=== PATIENT | female | born 1950 | race African-American/Black ===

== ENCOUNTER 2021-02-16 20:01 | Inpatient (IN) | payer MEDICARE, SELFPAY ==
--- NOTE | ~2021-02-16 | XR_ITS ---
EXAMINATION: XR chest 1V portable 02/16/2021 21:20 INDICATION: Weakness and dyspnea PROCEDURE: AP view of the chest COMPARISON: No prior studies for comparison. FINDINGS: The lungs are clear. The cardiomediastinal silhouette is within normal limits. There are no pleural effusions. There is no pneumothorax suspected. Prominent left nipple shadow. IMPRESSION: 1: NO ACUTE CARDIOPULMONARY DISEASE. Reviewed, dictated and finalized at location A.
--- NOTE | ~2021-02-16 | CT_ITS ---
EXAMINATION: CT abdomen pelvis wo con DATE: 02/16/2021 21:16 INDICATION: Diffuse abdominal pain and vomiting TECHNIQUE: Computed tomography (CT) of the abdomen and pelvis was performed without intravenous contr ast. The dose-length product was 272.36 mGy-cm. Automated exposure control and iterative reconstructi on technique were employed. COMPARISON: None. FINDINGS: Calcified granuloma right lower lobe. There is bibasilar atelectasis. Heart size is normal. Small pericardial effusion. No significant pleural effusion. There is an accessory splenule medial t o the spleen. There are gallstones. Gallbladder wall is indistinct with pericholecystic infiltration, suspicious for acute cholecystitis. No significant biliary dilatation. There is atherosclerosis of t he aorta without aneurysm. The liver, spleen, pancreas, adrenal glands and kidneys are unremarkable. IMPRESSION: 1. Cholelithiasis with possible gallbladder wall thickening and pericholecystic inflammation, suspici ous for acute cholecystitis. Correlate clinically. 2: Small pericardial effusion. Reviewed, dictated and finalized at location A. IMPRESSION: 1. Cholelithiasis with possible gallbladder wall thickening and pericholecystic inflammation, suspicious for acute cholecystitis. Correlate clinically. 2: Small pericardial effusion.
[2021-02-16 20:04] VITALS: BP 107/71; PULSE 100; RESP 16; TEMP 36.2; O2SAT 97
[2021-02-16 20:26] LABS: Hemoglobin 14.1 g/dL (12.0-15.0); Mean Corpuscular HGB Conc 35.3 g/dl (32-36); Mean Corpuscular Hemoglobin 28.8 pg (26-34); Mean Corpuscular Volume 81.8 fl (80-100); Mean Platelet Volume 10.8 fl (7.4-10.4); Platelet Count Result 386 k/mm3 (150-375); Red Blood Count 4.89 M/mm3 (4.2-5.4); Red Cell Distribution Width 12.3 % (11.5-14.5); White Blood Count 27.2 K/mm3 (4.5-10.0)
[2021-02-16 20:43] LABS: Band Neutrophils Percent 3 % (0-6); Eosinophils Absolute Manual 0.54 K/mm3 (0.02-0.5); Eosinophils Percent Manual 2 % (0-4); Lymphocytes Absolute Manual 2.72 K/mm3 (1.1-4.5); Monocytes Percent Manual 7 % (3-9); Neutrophils Absolute Manual 22.03 K/mm3 (1.7-7.2); Neutrophils Percent Manual 78 % (46-73); Platelet Estimate Increased (Adequate); Total Cells Counted 100
[2021-02-16 20:44] LABS: Alanine Aminotransferase 13 U/L (4-35); Alkaline Phosphatase 54 U/L (38-126); Aspartate Amino Transferase 21 U/L (14-36); Bilirubin,Total 0.9 mg/dL (0.2-1.3); Calcium 9.6 mg/dL (8.4-10.2); Glucose 225 mg/dL (65-105); Lipase 30 U/L (23-300)
--- NOTE | 2021-02-16 21:03 | ED.ABDPAIN ---
HPI - Abdominal Pain General Chief Complaint: Abdominal Pain Stated Complaint: abd pain vomiting Time Seen by Provider: 02/16/21 20:56 Source: patient and RN notes reviewed Mode of arrival: ambulatory Limitations: no limitations History of Present Illness HPI narrative: This is a 70 year old female who presents for evaluation of nausea, vomiting and abdominal pain. Patient states she developed nausea and vomiting on Monday. She developed constant lower abdominal pain after her vomiting. Her last bowel movement was Monday morning and she states it was normal. She denies fever or chills. She states she feels weak. She denies chest pain, cough or shortness of breath Related Data Home Medications Medication Instructions Recorded Confirmed amlodipine-benazepril 10 - 40 cap PO DAILY 02/17/21 02/17/21 gabapentin 300 mg PO Q12H 02/17/21 02/17/21 glimepiride 4 mg PO TID 02/17/21 02/17/21 Allergies Allergy/AdvReac Type Severity Reaction Status Date / Time iodine Allergy Anaphylaxis Verified 02/16/21 20:09 Review of Systems Review of Systems: All systems reviewed & are unremarkable except as noted in HPI and below Constitutional: Constitutional: Denies chills, Reports fatigue, Denies fever(s) and Reports weakness Cardiovascular: Cardiovascular: Denies chest pain Respiratory: Respiratory: Denies cough and Denies dyspnea Gastrointestinal: Gastrointestinal: Reports abdominal pain, Denies diarrhea, Reports nausea and Reports vomiting Musculoskeletal: Musculoskeletal: Reports back pain (chronic) [facility] Past Medical History Medical History (Updated 02/17/21 @ 00:36 by Kaylah Schaffer MD) Hypertension Surgical History Surgical History (Updated 02/16/21 @ 21:04 by Kaylah Schaffer MD) H/O: hysterectomy Family History Family History (Updated 02/17/21 @ 00:14 by Sophie North RN) Mother Lung cancer Other Breast cancer Father Pacemaker Diabetes mellitus Other Hypertension Social History Social History (Updated 02/16/21 @ 21:04 by Kaylah Schaffer MD) Years smoked: 40 Smoking status: Current every day smoker Tobacco type: cigarettes Alcohol intake: former Alcohol use details: occasional Substance use: current Substance use type: marijuana Gender identity (if verbalized by the patient): Female Spiritual care concerns: No Exam Const: General: no acute distress and alert Orientation/consciousness: patient oriented x3 Eyes: EOM: EOMs intact bilaterally Resp: Effort & Inspection: normal respiratory effort and no retractions Auscultation: clear to auscultation bilaterally Cardio: Rate: regular rate Rhythm: regular rhythm Heart sounds: Murmur heart sound present systolic GI: GI Palp: Yes Soft to palpation, Yes Tenderness to palpation present (GI), No Guarding due to palpation present (GI) and No Rigid due to palpation Auscultation: Hypoactive bowel sounds present Skin: General skin exam: normal color Neuro: General: patient oriented x3, moves all extremities and CN's II-XI intact bilaterally Psych: Mental Status: mental status grossly normal Affect: normal affect Course Reevaluation(s) Reevaluation #1: I discussed with patient that she will be admitted to hospital for evaluation of cholecystitis and hypokalemia. She denies any heart problems or chest pain. She reports she feels better. Date: 02/16/21 Time: 22:00 Consultations Consultation #1: I discussed case with Dr. Huber . He agrees to consult for evaluation of cholecystitis. PAtient will be admitted to hospitalist service. Date: 02/16/21 Time: 22:01 Consultation #2: I discussed case with DR. Smart and she accepts patient to hospitalist service. Date: 02/16/21 Time: 22:16 Vital Signs Vital signs: Vital Signs Temperature 97.1 F L 02/16/21 20:04 Pulse Rate 100 02/16/21 20:04 Respiratory Rate 16 02/16/21 20:04 Blood Pressure 107/71 02/16/21 20:04 Pulse Oximetry 97
[2021-02-16 21:27] LABS: Anion Gap 13 mmol/L (8-16); Blood Urea Nitrogen 23 mg/dL (7-17); Carbon Dioxide 25 mmol/L (22-30); Chloride 101 mmol/L (98-107); Potassium 2.8 mmol/L (3.4-5.0); Sodium 139 mmol/L (137-145)
[2021-02-16 21:28] LABS: Albumin Level 4.4 g/dL (3.5-5.1); Estimated CRCL calculation 26 ml/min; Estimated Glomerular Filt Rate 34
--- NOTE | 2021-02-16 21:35 | PC.NURSE ---
Pt unable to urinate at this time, refusing straight catheter. Urine cup at bedside.
[2021-02-16] MEDS: ONDANSETRON INJ 4 MG/2 ML VIAL IV PUSH (21:39)
[2021-02-16] MEDS: LACTATED RINGERS 1,000 ML 999 ML IV CONT ×2 (21:39→22:06)
[2021-02-16 21:41] VITALS: BP 107/77; O2SAT 100
[2021-02-16 21:49] LABS: INR 1.1; Lactic Acid Reflex 1.1 mmol/L (0.7-2.1); Magnesium 1.7 mg/dL (1.6-2.3); Prothrombin Time 15.1 Seconds (11.1-14.7)
[2021-02-16 21:50] LABS: Partial Thromboplastin Time 31.7 SECONDS (22.3-36.8)
[2021-02-16 22:31] VITALS: BP 134/83
[2021-02-16 22:42] LABS: Add Urine Microscopic? YES; Amorphous Sediment Urine Few; Appearance Urine Cloudy (Clear); Bacteria Urine Trace /hpf; Bilirubin Urine Negative (Negative); Blood Urine 1+ (Negative); Color Urine Yellow (Yellow); Glucose Urine UA 2+ mg/dL (Negative); Ketones Urine Negative (Negative); Leukocyte Esterase Ur Negative LEU/UL (Negative); Mucus Urine Rare /lpf; Nitrate Urine Negative (Negative); Protein Urine 3+ mg/dL (Negative); Specific Grav Ur 1.018 (1.001-1.035); Squamous Epithelial Cell Urine Many /hpf (Few); Urobilinogen Urine Negative mg/dL (<2.0); WBC Urine 0-3 /hpf
[2021-02-16 23:00] VITALS: BP 130/73; PULSE 85; RESP 16; O2SAT 95
[2021-02-16 23:16] VITALS: BP 141/82; PULSE 85; RESP 17; O2SAT 95
--- NOTE | 2021-02-16 23:38 | PC.NURSE ---
KCl burning pt arm. IV site intact, no signs of infiltration. Bolus of LR okayed by physician.
[2021-02-16] MEDS: LACTATED RINGERS 1,000 ML 125 ML IV CONT (23:46)
[2021-02-16 23:50] VITALS: BP 115/59; PULSE 98; RESP 16; TEMP 36.4; O2SAT 95; BMI 24.4
[2021-02-17] VITALS (10 sets, daily range): BP systolic 122–138; BP diastolic 67–84; PULSE 76–90; RESP 16–18; TEMP 36.1–36.7; O2SAT 96–100
--- NOTE | 2021-02-17 | ECHO_ITS ---
Patient Info Name: Pedro Earl Age: 70 years : 1950 Gender: Female Ht: 63 in Wt: 138 lbs BSA: 1.68 m2 HR: 78 bpm BP: 138 / 84 mmHg Heart Rhythm: Sinus Rhythm Technical Quality: Good Exam Date: 02/17/2021 10:58 AM Exam Location: [facility] Room: 314 Patient Status: Inpatient Admit Date: 02/16/2021 Staff Ordering Physician: Mariely Alfredo PA-C Coremaker Experimental: Shy Houser RDCS Attending Provider: Mariely Alfredo PA-C Referring Physician: Sayda CARTER; Exam Type: CA echo doppler color flow Study Info Indications - pericardial effusion hx/o htn Complete two-dimensional, color flow and Doppler transthoracic echocardiogram is performed. Summary 1. Complete two-dimensional, color flow and Doppler transthoracic echocardiogram is performed. 2. Normal left ventricular size, asymmetric septal hypertrophy. Good systolic function of all segments with no segmental wall motion abnormalities, visual ejection fraction 70-80%. Diastolic dysfunction is present. 3. Severe asymmetric septal hypertrophy which measures 2.0 cm in thickness. Also mildly elevated late peaking LVOT velocity of 1.6 M/sec, showing no significant intraventricular gradient. 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 4. Left atrial chamber dimension is mildly enlarged. 5. There is mild to moderate aortic valve regurgitation, difficult to quantitate secondary to turbulent flow in the LVOT. 6. There is mild mitral valve regurgitation. 7. There is mild pulmonic regurgitation. 8. Mild pulmonary hypertension, estimated pulmonary arterial systolic pressure is 40 mmHg. 9. There is no pericardial effusion. 10. Normal sinus rhythm. Left Ventricle Left ventricular chamber dimension is normal. Left ventricular systolic function is normal, estimated at >70%. There is severe asymmetric septal increased left ventricular wall thickness. Left ventricular septal wall motion is normal. The left ventricular diastolic function is grade II diastolic dysfunction. Right Ventricle Right ventricular chamber dimension is normal. Right ventricular systolic function is normal. Left Atria Left atrial chamber dimension is mildly enlarged. Right Atria Right atrial chamber dimension is normal. Aortic Valve The aortic valve is trileaflet. There is no aortic valve sclerosis. There is no aortic valve stenosis. There is mild to moderate aortic valve regurgitation, difficult to quantitate secondary to turbulent flow in the LVOT. Pulmonic Valve The pulmonic valve is normal. There is no pulmonic valve stenosis. There is mild pulmonic regurgitation. Mitral Valve The mitral valve has normal leaflets. There is no mitral valve stenosis. There is mild mitral valve regurgitation. Tricuspid Valve The tricuspid valve leaflets are normal. There is no significant tricuspid valve stenosis. There is trace tricuspid valve regurgitation. Mild pulmonary hypertension, estimated pulmonary arterial systolic pressure is 40 mmHg. Pericardium/Pleural The pericardium appears normal. There is no pericardial effusion. Inferior Vena Cava Normal inferior vena cava with >50% collapse upon inspiration consistent with Empty right atrial pressure, 10 mmHg. Aorta The aortic root size at the sinus of Valsalva is normal. The prox ascending aorta size is normal. Left Ventricular Outflow Tract
--- NOTE | 2021-02-17 00:08 | ADMGEN ---
This patient, Pedro Earl, was admitted to [facility] Surg Room 314-01. Patient/family oriented to hospital policies and general routines including ID bracelet, bed and alarms, visiting hours, pain management, procedures, bathroom and other care routines, personal items, smoking policy, room service/diet, and visiting hours. Information on how to activate the Rapid Response Team has been discussed. Patient/Family are encouraged to report perceived risks to care and to ask questions if they do not understand what they are told or what they should do.
[2021-02-17] MEDS: ONDANSETRON INJ 4 MG/2 ML VIAL IV PUSH ×3 (00:45→06:40)
[2021-02-17 01:34] LABS: Glucose Point of Care 250 mg/dl (65-105)
[2021-02-17 06:08] LABS: Basophils Absolute Auto 0.1 K/mm3 (0.0-0.1); Basophils Percent Auto 0.2 % (0.2-1.2); Eosinophils Absolute Auto 0.2 K/mm3 (0-0.3); Eosinophils Percent Auto 1.1 % (0-4.4); Hematocrit 33.9 % (37.0-47.0); Hemoglobin 11.8 g/dL (12.0-15.0); Immature Granulocyte Percent A 0.9 % (0-0.5); Lymphocytes Absolute Auto 1.87 K/mm3 (0.9-3.2); Lymphocytes Percent Auto 8.8 % (18.3-44.2); Mean Corpuscular HGB Conc 34.8 g/dl (32-36); Mean Corpuscular Hemoglobin 28.5 pg (26-34); Mean Corpuscular Volume 81.9 fl (80-100); Mean Platelet Volume 11.6 fl (7.4-10.4); Monocytes Absolute Auto 1.4 K/mm3 (0.1-0.6); Monocytes Percent Auto 6.8 % (2.6-8.5); Neutrophils Absolute Auto 17.5 K/mm3 (1.3-6.7); Neutrophils Percent Auto 82.2 % (45.5-73.1); Platelet Count Result 230 k/mm3 (150-375); Red Blood Count 4.14 M/mm3 (4.2-5.4); Red Cell Distribution Width 12.2 % (11.5-14.5); White Blood Count 21.3 K/mm3 (4.5-10.0)
[2021-02-17 06:33] LABS: Alanine Aminotransferase 12 U/L (4-35); Albumin Level 3.5 g/dL (3.5-5.1); Alkaline Phosphatase 44 U/L (38-126); Anion Gap 9 mmol/L (8-16); Aspartate Amino Transferase 18 U/L (14-36); Bilirubin,Total 0.9 mg/dL (0.2-1.3); Blood Urea Nitrogen 17 mg/dL (7-17); Calcium 8.6 mg/dL (8.4-10.2); Carbon Dioxide 25 mmol/L (22-30); Chloride 102 mmol/L (98-107); Estimated CRCL calculation 46 ml/min; Estimated Glomerular Filt Rate > 60; Glucose 254 mg/dL (65-105); Lipase 33 U/L (23-300); Potassium 2.7 mmol/L (3.4-5.0); Sodium 136 mmol/L (137-145)
--- NOTE | 2021-02-17 08:03 | PM.IMHP ---
H&P: HPI History of Present Illness Date/Time: 02/17/21 08:03 Chief Complaint: Abdominal pain Narrative: Patient is 70-year-old female with a past medical history of diabetes and hypertension who presented emergency room for abdominal pain that started Monday. The patient states on Monday she was in her normal state of health when she had roast beef, carrots and corn bread when she started to have significant lower abdominal pain. She describes this as a sharp, constant pain. Nothing made it better and eating or drinking made it worse. She started throwing up throughout the night and continued to have pain. The next few days she continued to have nausea, vomiting and abdominal pain and decided to come into the ER. Her last bowel movement was Monday and was normal. She denies hematemesis or hematochezia. She states that she has had a history of this pain about 3 times within the last 3 months but after she got sick she would go to sleep and the symptoms would go away. This time, the symptoms did not get any better which is why she came in. She denies dysuria, chest pain, shortness of breath, orthopnea, fevers, chills, cough, headache, rashes or wounds. She states that she has no history of heart disease. She had [employer] COVID-19 vaccine in November. She lives in [facility] and has been in the area since October to settle her late 's estate. She plans to be here for a few more weeks at least and can follow up with sx. She states that she has had a murmur ever since she can remember and has no history of valvular disease that she knows of. She continues to have unresolved nausea. Review of Systems Review of Systems: All systems reviewed & are unremarkable except as noted in HPI and below PMFSH Past Medical History Medical History Hypertension T2DM (type 2 diabetes mellitus) Surgical History Surgical History H/O: hysterectomy Family History Family History Mother Lung cancer Other Breast cancer Father Pacemaker Diabetes mellitus Other Hypertension Social History Social History (Updated 02/17/21 @ 08:56 by Mariely Alfredo PA-C) Social History: Patient smokes about 1-2 cigarettes a day and smokes marijuana nightly. She does not do drugs. She drinks alcohol socially and rarely. She works as a social sure worker. She would like to be a full code. She appoints her sister, Savita Luciano, as her surrogate decision maker if needed. Years smoked: 40 Smoking status: Current every day smoker Tobacco type: cigarettes Alcohol intake: former Alcohol use details: occasional Substance use: current Substance use type: marijuana Gender identity (if verbalized by the patient): Female Spiritual care concerns: No Meds Home Medications and Allergies Home Medications Medication Instructions Recorded Confirmed Type amlodipine-benazepril 10 - 40 cap PO DAILY 02/17/21 02/17/21 History gabapentin 300 mg PO Q12H 02/17/21 02/17/21 History glimepiride 4 mg PO TID 02/17/21 02/17/21 History Allergies Allergy/AdvReac Type Severity Reaction Status Date / Time iodine Allergy Anaphylaxis Verified 02/16/21 20:09 Vital Signs Vital Signs - 24 hr 02/16/21 20:04 02/16/21 21:41 02/16/21 22:31 Temperature 97.1 F L Pulse Rate 100 Respiratory Rate 16 Blood Pressure 107/71 107/77 134/83 Pulse Oximetry 97 100 02/16/21 23:00 02/16/21 23:16 02/16/21 23:50 Temperature 97.6 F Pulse Rate 85 85 98 Respiratory Rate 16 17 16 Blood Pressure 130/73 141/82 H 115/59 L Pulse Oximetry 95 95 95 02/17/21 00:00 02/17/21 04:00 02/17/21 06:00 Temperature 97.0 F L Pulse Rate 90 82 76 Respiratory Rate 18 Blood Pressure 138/84 Pulse Oximetry 99 Exam Narrative: Exam Narrative: General:Well
--- NOTE | 2021-02-17 08:07 | ECG_ITS ---
Measurements Intervals [place] Rate: 86 P: CT: 0 QRS: 107 QRSD: 102 T: 86 QT: 325 QTc: 390 Interpretive Statements SINUS RHYTHM ATRIAL PREMATURE COMPLEXES LIMB LEAD REVERSAL LOW QRS VOLTAGE IN PRECORDIAL LEADS CANNOT RULE OUT SEPTAL INFARCT, AGE INDETERMINATE BORDERLINE ST ABNORMALITY- INFERIOR LEADS ABNORMAL ECG Electronically Signed On 02-17-2021 12:43:16 CDT by Charly Caldera D.O.
[2021-02-17] MEDS: LACTATED RINGERS 1,000 ML 125 ML IV CONT (08:17)
--- NOTE | 2021-02-17 08:30 | PM.CNGS ---
Assessment and Plan Assessment and plan (1) Acute cholecystitis: Code(s): K81.0 - Acute cholecystitis Status: Acute Assessment and Plan: I have reviewed the CT and discussed the findings with the patient. She has evidence of acute cholecystitis. She has significant leukocytosis and hypokalemia. She has been started on broad-spectrum antibiotics and potassium replacements have been ordered. She still needs further resuscitation but I discussed with the patient that she will likely need eventual laparoscopic cholecystectomy. Will plan to proceed with laparoscopic cholecystectomy tomorrow. I discussed the procedure, risks, benefits, and alternatives. Questions were answered. (2) T2DM (type 2 diabetes mellitus): Qualifiers: Diabetes mellitus long-term insulin use: without dye stand loader use Diabetes mellitus complication status: with hyperglycemia Qualified Code(s): E11.65 - Type 2 diabetes mellitus with hyperglycemia Code(s): E11.9 - Type 2 diabetes mellitus without complications Status: Acute (3) Acute hypokalemia: Code(s): E87.6 - Hypokalemia Status: Acute History of Present Illness Consult details Consult date: 02/17/21 Reason for consult: other (Acute cholecystitis) Requesting physician: Kaylah Schaffer MD Narrative: This is a 70-year-old woman who presented to the emergency department last night with abdominal pain with nausea and vomiting. She states that she started having severe nausea on 02/15. She was mostly complaining of lower abdominal pain, but does have tenderness to palpation in the right upper quadrant. She did have roast beef and potatoes on Monday before the pain started. She has had a couple episodes like this in the past month but thought it was related to stress due to her recently dying. She denies any fevers or chills. Review of Systems Review of Systems: All systems reviewed & are unremarkable except as noted in HPI and below Eyes: Eyes: Denies change in vision ENT: Denies hearing loss, Denies neck pain and Denies sore throat Cardiovascular: Cardiovascular: Denies chest pain and Denies dyspnea Respiratory: Respiratory: Denies cough, Denies dyspnea and Denies wheezing Genitourinary: Genitourinary: Denies hematuria and Denies dysuria Musculoskeletal: Musculoskeletal: Denies arthralgias, Denies joint swelling and Denies neck pain Allergic/Immunologic: Allergic/Immunologic: Denies wheezing [facility] Past Medical History Medical History Hypertension T2DM (type 2 diabetes mellitus) Surgical History Surgical History H/O: hysterectomy Family History Family History Mother Lung cancer Other Breast cancer Father Pacemaker Diabetes mellitus Other Hypertension Social History Social History Years smoked: 40 Smoking status: Current every day smoker Tobacco type: cigarettes Alcohol intake: former Alcohol use details: occasional Substance use: current Substance use type: marijuana Gender identity (if verbalized by the patient): Female Spiritual care concerns: No Meds Home Medications and Allergies Home Medications Medication Instructions Recorded Confirmed Type amlodipine-benazepril 10 - 40 cap PO DAILY 02/17/21 02/17/21 History gabapentin 300 mg PO Q12H 02/17/21 02/17/21 History glimepiride 4 mg PO TID 02/17/21 02/17/21 History Allergies Allergy/AdvReac Type Severity Reaction Status Date / Time iodine Allergy Anaphylaxis Verified 02/16/21 20:09 Vital Signs Vital Signs - 24 hr 02/16/21 20:04 02/16/21 21:41 02/16/21 22:31 Temperature 36.2 C L Pulse Rate 100 Respiratory Rate 16 Blood Pressure 107/71 107/77 134/83 Pulse Oximetry 97 100 02/16/21 2
[2021-02-17 08:32] LABS: Glucose Point of Care 222 mg/dl (65-105)
[2021-02-17] MEDS: INSULIN ASPART (*BKC) 100 UNITS/ML SUB-Q ×3 (08:34→17:08)
[2021-02-17] MEDS: MAGNESIUM SULF 1 GM/D5W 100 ML 1 GM/100 ML BAG IVPB (10:34)
[2021-02-17] MEDS: PANTOPRAZOLE SODIUM IV 40 MG VIAL IV PUSH (10:36)
[2021-02-17] MEDS: NICOTINE (*PBKC) 7 MG PATCH 1 PATCH TRANSDERM (10:41)
[2021-02-17 12:34] LABS: Glucose Point of Care 291 mg/dl (65-105)
[2021-02-17 14:36] LABS: Hematocrit 32.7 % (37.0-47.0); Hemoglobin 11.6 g/dL (12.0-15.0)
[2021-02-17 14:51] LABS: Potassium 2.9 mmol/L (3.4-5.0)
[2021-02-17 14:59] LABS: NT Pro B Type Natriuretic Pept 637 pg/mL (5-100)
[2021-02-17 15:44] LABS: Thyroid Stimulating Hormone Reflex 0.544 uIU/mL (0.465-4.68)
[2021-02-17] MEDS: MORPHINE SULFATE (*CRX) 4 MG/ML INJ IV PUSH (17:03)
--- NOTE | 2021-02-17 17:04 | WPDANESEPP ---
Anes - Eval Pre Procedure Procedure: Operation Date: 02/18/21 07:30 Proposed Procedures p Laparoscopic Cholecystectomy, Possible Open - Vishnu Huber DO Date/Time: 02/17/21 17:04 Pre Op Diagnosis: acute cholecystitis, hypokalemia Patient Data Age: 70 Gender: F Height: 5 ft 3 in Weight: 62.6 kg Last Vital Signs Temp 98.0 F 02/17/21 14:00 Pulse 79 02/17/21 14:00 Resp 16 02/17/21 14:00 BP 133/78 02/17/21 14:00 Pulse Ox 98 02/17/21 14:49 Allergies Allergy/AdvReac Type Severity Reaction Status Date / Time iodine Allergy Anaphylaxis Verified 02/16/21 20:09 Home Medications Medication Instructions Recorded Confirmed Type amlodipine-benazepril 10 - 40 cap PO DAILY 02/17/21 02/17/21 History gabapentin 300 mg PO Q12H 02/17/21 02/17/21 History glimepiride 4 mg PO TID 02/17/21 02/17/21 History Laboratory Tests 02/16/21 02/16/21 02/16/21 20:17 20:17 21:32 WBC 27.2 K/mm3 H K/mm3 (4.5-10.0) RBC 4.89 M/mm3 M/mm3 (4.2-5.4) Hgb 14.1 g/dL g/dL (12.0-15.0) Hct 40.0 % % (37.0-47.0) MCV 81.8 fl fl (80-100) MCH 28.8 pg pg (26-34) MCHC 35.3 g/dl g/dl (32-36) RDW 12.3 % % (11.5-14.5) Plt Count 386 k/mm3 H k/mm3 (150-375) MPV 10.8 fl H fl (7.4-10.4) Immature Gran % (Auto) Not Reportable Neut % (Auto) Not Reportable Lymph % (Auto) Not Reportable [place] % (Auto) Not Reportable Eos % (Auto) Not Reportable Baso % (Auto) Not Reportable Lymph # (Auto) Not Reportable [place] # (Auto) Not Reportable Eos # (Auto) Not Reportable Baso # (Auto) Not Reportable Abs Immat Gran (auto) Not Reportable Absolute Neuts (auto) Not Reportable Absolute Nucleated RBC Not Reportable Total Counted 100 Neutrophils % (Manual) 78 % H % (46-73) Band Neutrophils % 3 % % (0-6) Lymphocytes % (Manual) 10.0 % L % (18-44) Monocytes % (Manual) 7 % % (3-9) Eosinophils % (Manual) 2 % % (0-4) Nucleated RBC % Not Reportable Abs Neuts (Manual) 22.03 K/mm3 H K/mm3 (1.7-7.2) Abs Lymphs (Manual) 2.72 K/mm3 K/mm3 (1.1-4.5) Abs Monocytes (Manual) 1.90 K/mm3 H K/mm3 (0.1-0.90) Absolute Eos (Manual) 0.54 K/mm3 H K/mm3 (0.02-0.5) Platelet Estimate Increased (Adequate) PT 15.1 Seconds H Seconds (11.1-14.7) INR 1.1 APTT 31.7 SECONDS SECONDS (22.3-36.8) Sodium 139 mmol/L mmol/L (137-145) Potassium 2.8 mmol/L L* mmol/L (3.4-5.0) Chloride 101 mmol/L mmol/L (98-107) Carbon Dioxide 25 mmol/L mmol/L (22-30) Anion Gap 13 mmol/L mmol/L (8-16) BUN 23 mg/dL H mg/dL (7-17) Creatinine 1.50 mg/dL H mg/dL (0.7-1.0) Estim Creat Clear Calc 26 ml/min ml/min Estimated GFR 34 L (59 - ) Glucose 225 mg/dL H mg/dL (65-105) POC Capillary Glucose Lactic Acid Calcium 9.6 mg/dL mg/dL (8.4-10.2) Magnesium Total Bilirubin 0.9 mg/dL mg/dL (0.2-1.3) AST 21 U/L U/L (14-36) ALT 13 U/L U/L (4-35) Alkaline Phosphatase 54 U/L U/L (38-126) NT-Pro-B Natriuret Pep Total Protein 8.0 g/dL g/dL (6.3-8.2) Albumin 4.4 g/dL g/dL (3.5-5.1) Lipase 30 U/L U/L (23-300) TSH (Reflex) Urine Color Urine Appearance Urine pH Ur Specific [place] Urine Protein Urine Glucose (UA) Urine Ketones Ur Blood (Man) Urine Nitrate Urine Bilirubin Urine Urobilinogen
[2021-02-17 17:27] LABS: Glucose Point of Care 211 mg/dl (65-105)
[2021-02-17 18:17] LABS: Potassium 2.8 mmol/L (3.4-5.0)
[2021-02-17] MEDS: POTASSIUM CHLORIDE 20 MEQ TABLET 40 MEQ PO (18:37)
[2021-02-17] MEDS: POTASSIUM CHLORIDE INJ 20 MEQ in LACTATED RINGERS 1,000 ML 75 MEQ IV CONT (20:46)
[2021-02-17 23:25] LABS: Glucose Point of Care 174 mg/dl (65-105)
[2021-02-18] VITALS (18 sets, daily range): BP systolic 112–156; BP diastolic 61–89; PULSE 70–83; RESP 14–19; TEMP 36.1–36.8; O2SAT 90–100
[2021-02-18 05:58] LABS: Glucose Point of Care 165 mg/dl (65-105)
[2021-02-18 06:19] LABS: Basophils Absolute Auto 0.1 K/mm3 (0.0-0.1); Basophils Percent Auto 0.3 % (0.2-1.2); Eosinophils Absolute Auto 0.4 K/mm3 (0-0.3); Eosinophils Percent Auto 2.3 % (0-4.4); Hematocrit 31.4 % (37.0-47.0); Immature Granulocyte Absolute 0.09 K/mm3 (0.00-0.031); Immature Granulocyte Percent A 0.5 % (0-0.5); Lymphocytes Absolute Auto 1.83 K/mm3 (0.9-3.2); Lymphocytes Percent Auto 10.7 % (18.3-44.2); Mean Corpuscular Hemoglobin 28.8 pg (26-34); Mean Corpuscular Volume 82.2 fl (80-100); Mean Platelet Volume 11.5 fl (7.4-10.4); Monocytes Absolute Auto 1.1 K/mm3 (0.1-0.6); Monocytes Percent Auto 6.1 % (2.6-8.5); Neutrophils Absolute Auto 13.7 K/mm3 (1.3-6.7); Neutrophils Percent Auto 80.1 % (45.5-73.1); Nucleated Red Blood Cells Perc 0.1 % (0.0-0.2); Platelet Count Result 143 k/mm3 (150-375); Red Blood Count 3.82 M/mm3 (4.2-5.4); White Blood Count 17.1 K/mm3 (4.5-10.0)
[2021-02-18] MEDS: LACTATED RINGERS 1,000 ML 30 ML IV CONT ×2 (06:30→08:40)
[2021-02-18 06:35] LABS: Alanine Aminotransferase 77 U/L (4-35); Albumin Level 3.2 g/dL (3.5-5.1); Alkaline Phosphatase 57 U/L (38-126); Anion Gap 6 mmol/L (8-16); Aspartate Amino Transferase 86 U/L (14-36); Bilirubin,Total 1.1 mg/dL (0.2-1.3); Blood Urea Nitrogen 13 mg/dL (7-17); Calcium 8.7 mg/dL (8.4-10.2); Carbon Dioxide 27 mmol/L (22-30); Chloride 104 mmol/L (98-107); Estimated CRCL calculation 60 ml/min; Estimated Glomerular Filt Rate > 60; Glucose 166 mg/dL (65-105); Magnesium 1.7 mg/dL (1.6-2.3); Potassium 3.3 mmol/L (3.4-5.0); Sodium 137 mmol/L (137-145)
--- NOTE | 2021-02-18 06:39 | WPDANESEFPP ---
Anes - Eval Final PreProcedure Day of Procedure 02/18/21 06:39 Patient weight: normal Heart: regular rate and rhythm Lungs: clear to auscultation Airway: Mallampati scale (edentulous) class II Neurological: alert and oriented Last oral intake: >/= 8 hours ASA classification: II Emergent: no Anesthetic plan: proceed Anesthesia type and monitoring: general ETT and standard monitoring Informed Consent: The patient's anesthetic plan and its attendant risks and benefits were discussed with the patient/family/POA. Questions were solicited and answers provided to the satisfaction of the patient/family/POA.
--- NOTE | 2021-02-18 06:52 | WPDHPUPDATE1 ---
History and Physical Update Update Date/Time: 02/18/21 06:52 History and Physical has been reviewed, including an updated exam of the patient. There are NO changes in the patient's condition. Risks, benefits, and alternatives have been discussed and questions answered. Patient agrees to proceed with procedure.
[2021-02-18] MEDS: BUPIVACAINE/EPINEPHRINE 0.5% 10 ML VIAL 30 ML INFILTRATE (07:47)
--- NOTE | 2021-02-18 08:31 | PM.PROC ---
Procedure Note - Detailed Date of procedure: 02/18/21 Pre-op diagnosis: acute cholecystitis, hypokalemia Post-op diagnosis: same Procedure performed: Laparoscopic Cholecystectomy Description of procedure: Procedure as well as risks, benefits, and alternatives were discussed with patient. Written consent was obtained and placed in chart prior to procedure. The patient was brought back to surgical suite. Patient was placed in supine position on operating table. Time-out was done to confirm patient and procedure. Patient was then intubated by the anesthesia department. Abdomen was prepped and draped in sterile fashion using chlorhexidine prep. 0.5% bupivacaine with epinephrine was infiltrated at each site of incision. An 11 millimeter vertical incision was made at the superior portion of the umbilicus using a 15 blade scalpel. Blunt dissection was carried down to the linea alba. The linea alba was then incised using a 15 blade scalpel. The peritoneum was then bluntly entered. An 11 millimeter trocar was inserted and cabon dioxied insuflation was used to create a pneumoperitoneum. The camera was inserted and the abdomen was inspected. There were adhesions around the midline from her prior surgeries. I did have to place 2 more ports in the left lateral abdomen to allow me to take down some of the adhesions did visualize the abdominal wall. The patient was placed in reverse Trendelenberg position and rotated slightly to the left. A 5 millimeter incision was made in the epigastric region, and a 5 millimeter trocar was inserted under direct visualization. Two 5 millimeter incisions were made in the right upper quadrant, and two 5 millimeter trocars were inserted under direct visualization. The gallbladder was identified and grasped at the fundus and retracted superiorly. It was then grasped at the infundibulum retracted laterally. Careful dissection around the neck of the gallbladder was performed using blunt dissection with a [place] grasper and hook electrocautery. The cystic duct was identified, and a window was created behind it. The cystic artery was also identified and a window was created behind it. The critical view of safety was identified, visualizing the cystic duct running directly into the neck of the gallbladder, and the cystic artery running directly into the wall of the gallbladder. A 5 millimeter clip logging crew foreman was then used to place 2 clips proximally and 1 clip distally on both the cystic duct and cystic artery. They were then both transected using endoscopic scissors. Once safely away from the demetrius hepatitis, the gallbladder was dissected free from the liver bed using hook electrocautery. Hemostasis was achieved along the way. The gallbladder was removed completely and then removed through the subxiphoid port. The liver bed was then inspected. Hemostasis appeared adequate, and our clips appeared secure. The area was gently irrigated with sterile saline. No other abnormalities were seen. The patient was flattened out in bed, and 1 final inspection was made around the abdominal cavity. The ports were then removed under direct visualization, the camera was removed, and the pneumoperitoneum was released. The fascia of the umbilical incision was approximated using an 0 Vicryl [id number] suture. The skin of the incisions was approximated using 4-0 Monocryl subcuticular sutures. Exofin glue was applied on top. The patient was then awakened from anesthesia, extubated, and transferred to recovery. Anesthesia: GETA and local (0.5% bupivicaine with epinephrine) Surgeon: Vishnu Huber DO Estimated blood loss (mL): 50 Drains: Yes (19 round Regulo) Pathology: yes Complications: No immediate complications Condition: stable Disposition: floor Findings: This is 69 year woman who presented to the emergency department with upper abdominal pain with nausea and vomiting. She had been experiencing pain for several days had had a couple mo
[2021-02-18] MEDS: fentaNYL CITRATE INJ (*CRX) 100 MCG/2 ML VIAL 25 MCG IV PUSH ×4 (08:54→09:31)
--- NOTE | 2021-02-18 10:10 | PC.NURSE ---
patient returned from OR
[2021-02-18] MEDS: PANTOPRAZOLE SODIUM IV 40 MG VIAL IV PUSH (10:18)
[2021-02-18] MEDS: MORPHINE SULFATE (*CRX) 4 MG/ML INJ IV PUSH ×3 (10:21→20:52)
--- NOTE | 2021-02-18 11:50 | PM.IMPN ---
Progress Note: A&P Assessment and Plan (1) Acute cholecystitis: Code(s): K81.0 - Acute cholecystitis Status: Acute Assessment and Plan: CT and pt symptoms consistent with cholecystitis -Pt afebrile but had a WBC improving on abx -Pt on zosyn -patient underwent a cholecystectomy today which went well. Drain in place -surgery consulted, advance diet as tolerated (2) Pericardial effusion: Code(s): I31.3 - Pericardial effusion (noninflammatory) Status: Acute Assessment and Plan: Pt reports no hx of heart disease -small, no signs of cardiac tamponade -CT showing pericardial effusion but none seen on the echo. (3) T2DM (type 2 diabetes mellitus): Qualifiers: Diabetes mellitus alf insulin use: without alf use Diabetes mellitus complication status: with hyperglycemia Qualified Code(s): E11.65 - Type 2 diabetes mellitus with hyperglycemia Code(s): E11.9 - Type 2 diabetes mellitus without complications Status: Acute Assessment and Plan: Last glucose 166 -Continue accuchecks and SSI -Pt takes glimepiride at home, will hold this for now -A1c 8.0 -will adjust treatment as the diet increases (4) Hypertension: Code(s): I10 - Essential (primary) hypertension Status: Inactive Assessment and Plan: Last bp 120/66 -Pt takes amlodapine and benazepril at home but these are on hold for now -continue p.r.n. hydralazine for elevated blood pressures (5) Anemia: Code(s): D64.9 - Anemia, unspecified Status: Acute Assessment and Plan: Slightly anemic this morning, 11.0 likely partially due to hemodiution with IV fluids -monitor for bleeding -No work up indicated at this time. If it worsens, will order anemia studies (6) Acute hypokalemia: Code(s): E87.6 - Hypokalemia Status: Acute Assessment and Plan: Improved a little today to 3.3 -continue IV fluids with potassium -Likely due to vomiting -reassess tomorrow (7) Hypertrophic nonobstructive cardiomyopathy: Code(s): I42.2 - Other hypertrophic cardiomyopathy Status: Acute Assessment and Plan: Noted on echo, no signs of obstruction -will need to follow-up with her mounter automatic back in [facility]. Echo report was printed out and given to the patient -Avoid dehydration and diuretics Time Spent With Patient Time with patient: 25 - 35 minutes Subjective Date/time seen: 02/18/21 11:50 Interval history: Pt is a 70-year-old here for cholecystitis. Patient was seen today after surgery and doing okay. She says her pain is currently a 5/10 but that she just got pain medication. Pt denies nausea, vomiting, fevers, chills, constipation, diarrhea, chest pain, or shortness of breath. She states that she has a mounter automatic back home because of her murmur and that she is going to follow-up with them about her echo results. These were provided at bedside. Review of Systems Review of Systems: All systems reviewed & are unremarkable except as noted in HPI and below Exam Narrative: Exam Narrative: General:Well developed well nourished patient HEENT: Normocephalic, atraumatic, PERRL, Sclerae anicteric, oral mucosa moist. Neck: Supple Resp: CTA Heart: RRR with 2/6 systolic murmur. Telemetry showing occasional PVC but normal sinus rhythm Abd: Soft, non-distended. Incision sites clean and dry without dehiscence, bleeding or discharge. Drain intact with a small amount of blood Skin: Warm and dry Extremities: No swelling, erythema or pain to palpation Neuro: Alert and Oriented x4 . CN 2-12 intact. No focal neurological deficits. Objective Data Vital Signs Vital Signs: Vital Signs - 24 hr 02/17/21 12:00 02/17/21 14:00 02/17/21 14:49 Temperature 98.0 F Pulse Rate 81 79 Respiratory Rate 16 Blood Pressure 133/78 Pulse Oximetry 100 98 02/17/21 16:00 02/17/21 20:00 02/17/21 21:51 Tem
[2021-02-18 12:05] LABS: Glucose Point of Care 259 mg/dl (65-105)
[2021-02-18] MEDS: ENOXAPARIN 30 MG/0.3 ML SYRINGE SUB-Q ×2 (12:09→20:49)
[2021-02-18] MEDS: INSULIN ASPART (*BKC) 100 UNITS/ML SUB-Q ×2 (12:11→17:25)
[2021-02-18] MEDS: Acetaminophen/HYDROcodone ELIXIR (*CRX) 7.5 MG/15 ML UDC PO ×2 (14:53→14:54)
[2021-02-18] MEDS: POTASSIUM CHLORIDE INJ 20 MEQ in LACTATED RINGERS 1,000 ML 75 MEQ IV CONT (14:59)
[2021-02-18] MEDS: NICOTINE (*PBKC) 7 MG PATCH 1 PATCH TRANSDERM (15:00)
[2021-02-18] MEDS: diphenhydrAMINE HCL ELIXIR 12.5 MG/5 ML UDC PO (15:43)
[2021-02-18 17:01] LABS: Glucose Point of Care 244 mg/dl (65-105)
[2021-02-18] MEDS: SIMETHICONE 80 MG TAB.CHEW PO ×2 (17:27→20:48)
[2021-02-18 21:44] LABS: Glucose Point of Care 206 mg/dl (65-105)
[2021-02-19] VITALS (7 sets, daily range): BP systolic 120–167; BP diastolic 70–86; PULSE 66–108; RESP 16–20; TEMP 35.9–37.6; O2SAT 90–97
[2021-02-19] MEDS: MORPHINE SULFATE (*CRX) 4 MG/ML INJ IV PUSH (00:37)
[2021-02-19] MEDS: Acetaminophen/HYDROcodone ELIXIR (*CRX) 7.5 MG/15 ML UDC PO ×4 (05:38→21:53)
[2021-02-19 05:56] LABS: Glucose Point of Care 155 mg/dl (65-105)
--- NOTE | 2021-02-19 07:22 | WPDANESPN ---
Anes - Prog Note Post-Op Date/Time: 02/19/21 07:22 Cardiovascular status: normal Respiratory status: normal Airway patency: baseline Mental status: baseline Post-Op hydration status: normal Vital Signs: Last Vital Signs Temp 35.9 C L 02/19/21 05:00 Pulse 80 02/19/21 05:00 Resp 18 02/19/21 05:00 BP 167/70 H 02/19/21 05:00 Pulse Ox 91 02/19/21 05:00 Pain Score (VAS): 2 I/O: Intake & Output 02/18/21 02/18/21 02/19/21 15:59 23:59 07:59 Intake Total 1790 840 450 Output Total 15 40 Balance 1775 800 450 Laboratory Tests 02/18/21 05:40 02/18/21 05:40 02/18/21 02/18/21 02/18/21 11:52 16:52 20:45 POC Capillary Glucose 259 H 244 H 206 H 02/19/21 05:43 POC Capillary Glucose 155 H Post-procedural complaints: none Patient Feedback: Patient satisfied with anesthetic care.
[2021-02-19 08:11] LABS: Glucose Point of Care 223 mg/dl (65-105)
[2021-02-19] MEDS: PANTOPRAZOLE SODIUM IV 40 MG VIAL IV PUSH (08:43)
[2021-02-19] MEDS: ENOXAPARIN 30 MG/0.3 ML SYRINGE SUB-Q ×2 (08:43→21:20)
[2021-02-19] MEDS: SIMETHICONE 80 MG TAB.CHEW PO ×4 (08:52→21:20)
[2021-02-19] MEDS: INSULIN ASPART (*BKC) 100 UNITS/ML SUB-Q ×3 (08:59→17:29)
--- NOTE | 2021-02-19 09:43 | PM.IMPN ---
Progress Note: A&P Assessment and Plan (1) Acute cholecystitis: Code(s): K81.0 - Acute cholecystitis Status: Acute Assessment and Plan: CT and pt symptoms consistent with cholecystitis -Pt afebrile but had a WBC improving on abx -Pt on zosyn -patient underwent a cholecystectomy 02/18/21 which went well. Drain in place -surgery consulted, advance diet as tolerated (2) Pericardial effusion: Code(s): I31.3 - Pericardial effusion (noninflammatory) Status: Acute Assessment and Plan: Pt reports no hx of heart disease -small, no signs of cardiac tamponade -CT showing pericardial effusion but none seen on the echo. (3) T2DM (type 2 diabetes mellitus): Qualifiers: Diabetes mellitus roasterman insulin use: without fdc use Diabetes mellitus complication status: with hyperglycemia Qualified Code(s): E11.65 - Type 2 diabetes mellitus with hyperglycemia Code(s): E11.9 - Type 2 diabetes mellitus without complications Status: Acute Assessment and Plan: Last glucose 223 -Continue accuchecks and SSI -Pt takes glimepiride at home, will hold this for now. If she tolerates a diet may restart -A1c 8.0 -will adjust treatment as the diet increases (4) Hypertension: Code(s): I10 - Essential (primary) hypertension Status: Inactive Assessment and Plan: Last bp 126/86 -will restart home amlodipine -continue p.r.n. hydralazine for elevated blood pressures (5) Anemia: Code(s): D64.9 - Anemia, unspecified Status: Acute Assessment and Plan: Awaiting labs today but mild on previous blood draws -monitor for bleeding -No work up indicated at this time. If it worsens, will order anemia studies (6) Acute hypokalemia: Code(s): E87.6 - Hypokalemia Status: Acute Assessment and Plan: Awaiting labs today -treat as necessary being on the results -will stop IV fluids that contain potassium -Likely due to vomiting (7) Hypertrophic nonobstructive cardiomyopathy: Code(s): I42.2 - Other hypertrophic cardiomyopathy Status: Acute Assessment and Plan: Noted on echo, no signs of obstruction -will need to follow-up with her boom master back in [facility]. Echo report was printed out and given to the patient -Avoid dehydration and diuretics Subjective Date/time seen: 02/19/21 09:43 Interval history: Pt is a 70-year-old here for cholecystitis. Patient was seen today and is doing okay. She has significant pain overnight did not think that IV pain medication was helping. She got oral pain medication today which has improved her pain. She did not have an appetite this morning due to her pain so she is going to try to eat breakfast. She initially did not want her blood drawn because she thinks she has been stuck too much but then agreed to have 1 person try 1 time after I explained to her the importance of rechecking potassium. She denies chest pain but does have some shortness of breath since she cannot take a big breath because of her abdominal pain. She has not passed gas or had bowel movement since surgery. She has been burping but does not feel nauseated at this time. Exam Narrative: Exam Narrative: General:Well developed well nourished patient HEENT: Normocephalic, atraumatic, PERRL, Sclerae anicteric, oral mucosa moist. Neck: Supple Resp: CTA Heart: RRR with 2/6 systolic murmur. Telemetry showing occasional PVC but normal sinus rhythm Abd: Soft, non-distended. Incision sites clean and dry without dehiscence, bleeding or discharge. Drain intact with a small amount of blood. Positive bowel sounds Skin: Warm and dry Extremities: No swelling, erythema or pain to palpation Neuro: Alert and Oriented x4 . CN 2-12 intact. No focal neurological deficits. Objective Data Vital Signs Vital Signs: Vital Signs - 24 hr 02/18/21 09:55 02/18/21 10:10 02/18/21 10
[2021-02-19 09:58] LABS: Basophils Percent Auto 0.4 % (0.2-1.2); Eosinophils Absolute Auto 0.2 K/mm3 (0-0.3); Eosinophils Percent Auto 1.5 % (0-4.4); Hematocrit 28.4 % (37.0-47.0); Hemoglobin 9.5 g/dL (12.0-15.0); Immature Granulocyte Absolute 0.05 K/mm3 (0.00-0.031); Immature Granulocyte Percent A 0.5 % (0-0.5); Lymphocytes Absolute Auto 2.02 K/mm3 (0.9-3.2); Lymphocytes Percent Auto 18.8 % (18.3-44.2); Mean Corpuscular HGB Conc 33.5 g/dl (32-36); Mean Corpuscular Hemoglobin 28.3 pg (26-34); Mean Corpuscular Volume 84.5 fl (80-100); Mean Platelet Volume 10.1 fl (7.4-10.4); Monocytes Absolute Auto 0.8 K/mm3 (0.1-0.6); Monocytes Percent Auto 7.2 % (2.6-8.5); Neutrophils Absolute Auto 7.7 K/mm3 (1.3-6.7); Neutrophils Percent Auto 71.6 % (45.5-73.1); Platelet Count Result 283 k/mm3 (150-375); Red Blood Count 3.36 M/mm3 (4.2-5.4); Red Cell Distribution Width 12.1 % (11.5-14.5); White Blood Count 10.8 K/mm3 (4.5-10.0)
[2021-02-19 10:19] LABS: Alanine Aminotransferase 65 U/L (4-35); Albumin Level 3.1 g/dL (3.5-5.1); Alkaline Phosphatase 52 U/L (38-126); Anion Gap 6 mmol/L (8-16); Aspartate Amino Transferase 50 U/L (14-36); Bilirubin,Total 0.6 mg/dL (0.2-1.3); Blood Urea Nitrogen 16 mg/dL (7-17); Calcium 8.5 mg/dL (8.4-10.2); Carbon Dioxide 29 mmol/L (22-30); Chloride 103 mmol/L (98-107); Estimated CRCL calculation 53 ml/min; Estimated Glomerular Filt Rate > 60; Glucose 211 mg/dL (65-105); Magnesium 1.7 mg/dL (1.6-2.3); Potassium 3.1 mmol/L (3.4-5.0); Sodium 138 mmol/L (137-145)
--- NOTE | 2021-02-19 10:43 | PM.PNGS ---
Progress Note: A&P Assessment and Plan (1) Acute cholecystitis: Code(s): K81.0 - Acute cholecystitis Status: Acute Assessment and Plan: cont pain control measures, encourage OOB/IS, ADAT, probably home tomorrow Subjective Subjective Date/Time Seen: 02/19/21 10:43 reports significant pain yest and overnight, feels better this am Review of Systems Review of Systems: All systems reviewed & are unremarkable except as noted in HPI and below Exam Const: General: cooperative, no acute distress and ill appearing Resp: Effort & Inspection: normal respiratory effort Auscultation: diminished lung sounds Cardio: Rate: tachycardic Rhythm: regular rhythm GI: Inspection: normal to inspection, distended and incision GI Palp: Yes Soft to palpation and Yes Tenderness to palpation present (GI) Other: soft, mod dist, jes TTP, incisions C/D/I Objective Data Vital Signs Vital Signs: Vital Signs - 24 hr 02/18/21 10:55 02/18/21 11:55 02/18/21 12:00 Temperature 36.8 C 36.6 C Pulse Rate 71 72 70 Respiratory Rate 19 16 Blood Pressure 120/66 124/73 Pulse Oximetry 91 93 02/18/21 16:00 02/18/21 20:33 02/18/21 21:00 Temperature 36.6 C 36.2 C L Pulse Rate 76 80 Respiratory Rate 16 16 Blood Pressure 143/80 H 137/70 Pulse Oximetry 90 93 97 02/19/21 00:13 02/19/21 05:00 02/19/21 08:40 Temperature 36.1 C L 35.9 C L Pulse Rate 79 80 Respiratory Rate 16 18 Blood Pressure 120/73 167/70 H Pulse Oximetry 93 91 97 02/19/21 09:00 Temperature 36.4 C L Pulse Rate 108 H Respiratory Rate 16 Blood Pressure 126/86 Pulse Oximetry 96 Intake/Output Intake/Output: Intake & Output 02/16/21 02/17/21 02/18/21 02/19/21 23:59 23:59 23:59 23:59 Intake Total 2150 2790 3030 450 Output Total 55 Balance 2150 2790 2975 450 Meds/Results Medications: Active Medications Generic Name Dose Route Start Last Admin Trade Name Freq PRN Reason Stop Dose Admin Hydrocodone Bitart/Acetaminophen 7.5 mg 02/18/21 14:11 02/19/21 05:38 Acetaminophen/Hydrocodone Elixir (*Crx) 7.5 Mg/15 Ml Udc PO 7.5 mg Q4H PRN Administration Pain Rated 4-6 Amlodipine Besylate 10 mg 02/19/21 09:50 Amlodipine Besylate 5 Mg Tablet PO QAM TATE Dextrose 12.5 gm 02/17/21 07:56 Dextrose 50% 25 Gm/50 Ml Syringe IV PUSH PRN PRN Hypoglycemia Protocol Diphenhydramine HCl 12.5 mg 02/18/21 14:11 02/18/21 15:43 Diphenhydramine Hcl Elixir 12.5 Mg/5 Ml Udc PO 12.5 mg Q6H PRN Administration Itching Enoxaparin Sodium 30 mg 02/18/21 10:01 02/19/21 08:43 Enoxaparin 30 Mg/0.3 Ml Syringe SUB-Q 30 mg Q12HR TATE Administration Glucagon 1 mg 02/17/21 07:56 Glucagon For Inj 1 Mg Vial IM PRN PRN Hypoglycemia Protocol Glucose 15 gm 02/17/21 07:56 Glucose Oral Gel 15 Gm Of Glucse In 37.5 Gm Tube PO PRN PRN Hypoglycemia Protocol Hydralazine HCl 10 mg 02/17/21 08:14 Hydralazine Hcl 20 Mg/Ml Vial IV PUSH Q8H PRN Blood Pressure - High Piperacillin Sod/Tazobactam Sod 2.25 gm in 50 mls @ 100 mls/hr 02/17/21 06:00 02/19/21 06:11 Zosyn 2.25 Gm/D5w 50 Ml IVPB Infused Q6HR TATE Infusion Dextrose 1,000 mls @ 100 mls/hr 02/17/21 07:56 Dextrose 5% 1,000 Ml IVPB PRN PRN Hypoglycemia Protocol Insulin Aspart 2 - 5 units 02/17/21 08:00 02/19/21 08:59 Insulin Aspart (*Bkc) 100 Units/Ml SUB-Q 2 units TIDWM TATE Administration Protocol Morphine Sulfate 2 mg 02/18/21 10:01 Morphine Sulfate (*Crx) 2 Mg/Ml Inj IV PUSH Q2H PRN Pain Rated 4-6 Morphine Sulfate 4 mg 02/18/21 10:01 02/19/21 00:37 Morphine Sulfate (*Crx) 4 Mg/Ml Inj IV PUSH 4 mg Q2H PRN Administration Pain Rated 7-10 Nicotine 1 patch 02/17/21 08:59 02/18/21 15:00 Nicotine (*Donkc) 7 Mg Patch TRANSDERM 1 patch QAM PRN Administration smoking cravings Pantoprazole Sodium 40 mg 02/17/21
[2021-02-19] MEDS: amLODIPine BESYLATE 5 MG TABLET 10 MG PO (11:09)
[2021-02-19 12:27] LABS: Glucose Point of Care 201 mg/dl (65-105)
[2021-02-19] MEDS: POTASSIUM CHLORIDE 20 MEQ TABLET 40 MEQ PO (17:29)
[2021-02-19 17:35] LABS: Glucose Point of Care 211 mg/dl (65-105)
[2021-02-19 23:12] LABS: Glucose Point of Care 187 mg/dl (65-105)
[2021-02-20] VITALS: BP 153/87; PULSE 71; RESP 20; TEMP 36.4; O2SAT 94
[2021-02-20 06:00] VITALS: BP 149/75; PULSE 71; RESP 20; TEMP 36.3; O2SAT 98
[2021-02-20 06:16] LABS: Alanine Aminotransferase 50 U/L (4-35); Albumin Level 3.1 g/dL (3.5-5.1); Alkaline Phosphatase 51 U/L (38-126); Anion Gap 6 mmol/L (8-16); Aspartate Amino Transferase 30 U/L (14-36); Bilirubin,Total 0.6 mg/dL (0.2-1.3); Blood Urea Nitrogen 9 mg/dL (7-17); Calcium 8.2 mg/dL (8.4-10.2); Carbon Dioxide 28 mmol/L (22-30); Chloride 103 mmol/L (98-107); Estimated CRCL calculation 60 ml/min; Estimated Glomerular Filt Rate > 60; Glucose 210 mg/dL (65-105); Potassium 3.1 mmol/L (3.4-5.0); Sodium 137 mmol/L (137-145)
[2021-02-20 06:24] LABS: Basophils Absolute Auto 0.1 K/mm3 (0.0-0.1); Basophils Percent Auto 0.6 % (0.2-1.2); Eosinophils Absolute Auto 0.5 K/mm3 (0-0.3); Hematocrit 28.6 % (37.0-47.0); Hemoglobin 9.8 g/dL (12.0-15.0); Immature Granulocyte Absolute 0.05 K/mm3 (0.00-0.031); Immature Granulocyte Percent A 0.6 % (0-0.5); Lymphocytes Absolute Auto 2.14 K/mm3 (0.9-3.2); Lymphocytes Percent Auto 23.7 % (18.3-44.2); Mean Corpuscular HGB Conc 34.3 g/dl (32-36); Mean Corpuscular Hemoglobin 28.6 pg (26-34); Mean Corpuscular Volume 83.4 fl (80-100); Mean Platelet Volume 10.2 fl (7.4-10.4); Monocytes Absolute Auto 0.7 K/mm3 (0.1-0.6); Neutrophils Absolute Auto 5.6 K/mm3 (1.3-6.7); Neutrophils Percent Auto 62.1 % (45.5-73.1); Platelet Count Result 310 k/mm3 (150-375); Red Blood Count 3.43 M/mm3 (4.2-5.4); Red Cell Distribution Width 11.9 % (11.5-14.5)
[2021-02-20 07:01] LABS: Glucose Point of Care 207 mg/dl (65-105)
[2021-02-20 08:30] LABS: Glucose Point of Care 200 mg/dl (65-105)
[2021-02-20 09:03] LABS: Iron 32 ug/dL (37-170)
[2021-02-20 09:12] LABS: Percent Iron Saturation 17 % (20-50)
[2021-02-20] MEDS: polyethylene glycoL 3350 17 GM POWD.PACK PO (09:17)
[2021-02-20] MEDS: POTASSIUM CHLORIDE 20 MEQ TABLET 40 MEQ PO (09:20)
[2021-02-20] MEDS: SIMETHICONE 80 MG TAB.CHEW PO (09:21)
[2021-02-20] MEDS: ENOXAPARIN 30 MG/0.3 ML SYRINGE SUB-Q (09:21)
[2021-02-20] MEDS: PANTOPRAZOLE SODIUM IV 40 MG VIAL IV PUSH (09:21)
[2021-02-20] MEDS: amLODIPine BESYLATE 5 MG TABLET 10 MG PO (09:22)
[2021-02-20] MEDS: NICOTINE (*PBKC) 7 MG PATCH 1 PATCH TRANSDERM (09:26)
[2021-02-20] MEDS: Acetaminophen/HYDROcodone ELIXIR (*CRX) 7.5 MG/15 ML UDC PO (09:35)
[2021-02-20 10:11] LABS: Transferrin 122 mg/dL (206-381)
[2021-02-20 10:35] LABS: Folic Acid 7.5 ng/mL (2.76->20)
[2021-02-20] MEDS: INSULIN ASPART (*BKC) 100 UNITS/ML SUB-Q (12:09)
--- NOTE | 2021-02-20 12:10 | PM.PNGS ---
Progress Note: A&P Assessment and Plan (1) Acute cholecystitis: Code(s): K81.0 - Acute cholecystitis Status: Acute Assessment and Plan: much better today, pain controlled c po analgesia, ok to dc home from surgical standpoint, f/u Dr. Huber 2 wks Subjective Subjective Date/Time Seen: 02/20/21 12:10 feels much better today, chemo diet, +flatus Review of Systems Review of Systems: All systems reviewed & are unremarkable except as noted in HPI and below Exam Const: General: cooperative, comfortable and no acute distress Orientation/consciousness: patient oriented x3 Resp: Effort & Inspection: normal respiratory effort Auscultation: clear to auscultation bilaterally Cardio: Rate: regular rate Rhythm: regular rhythm GI: Inspection: normal to inspection, distended and incision GI Palp: Yes Soft to palpation and Yes Tenderness to palpation present (GI) Other: soft, sl dist, jes TTP, incisions C/D/I, SENG removed at bedside Objective Data Vital Signs Vital Signs: Vital Signs - 24 hr 02/19/21 13:00 02/19/21 17:00 02/19/21 20:00 Temperature 37.1 C 37.3 C 37.6 C Pulse Rate 74 71 66 Respiratory Rate 18 16 20 Blood Pressure 150/76 H 142/79 H 151/84 H Pulse Oximetry 90 91 96 02/20/21 00:00 02/20/21 06:00 Temperature 36.4 C L 36.3 C L Pulse Rate 71 71 Respiratory Rate 20 20 Blood Pressure 153/87 H 149/75 H Pulse Oximetry 94 98 Intake/Output Intake/Output: Intake & Output 02/17/21 02/18/21 02/19/21 02/20/21 23:59 23:59 23:59 23:59 Intake Total 2790 3030 1510 790 Output Total 55 1210 765 Balance 2790 2975 300 25 Meds/Results Medications: Active Medications Generic Name Dose Route Start Last Admin Trade Name Freq PRN Reason Stop Dose Admin Hydrocodone Bitart/Acetaminophen 7.5 mg 02/18/21 14:11 02/20/21 09:35 Acetaminophen/Hydrocodone Elixir (*Crx) 7.5 Mg/15 Ml Udc PO 7.5 mg Q4H PRN Administration Pain Rated 4-6 Amlodipine Besylate 10 mg 02/19/21 09:50 02/20/21 09:22 Amlodipine Besylate 5 Mg Tablet PO 10 mg QAM TATE Administration Dextrose 12.5 gm 02/17/21 07:56 Dextrose 50% 25 Gm/50 Ml Syringe IV PUSH PRN PRN Hypoglycemia Protocol Diphenhydramine HCl 12.5 mg 02/18/21 14:11 02/18/21 15:43 Diphenhydramine Hcl Elixir 12.5 Mg/5 Ml Udc PO 12.5 mg Q6H PRN Administration Itching Enoxaparin Sodium 30 mg 02/18/21 10:01 02/20/21 09:21 Enoxaparin 30 Mg/0.3 Ml Syringe SUB-Q 30 mg Q12HR TATE Administration Glucagon 1 mg 02/17/21 07:56 Glucagon For Inj 1 Mg Vial IM PRN PRN Hypoglycemia Protocol Glucose 15 gm 02/17/21 07:56 Glucose Oral Gel 15 Gm Of Glucse In 37.5 Gm Tube PO PRN PRN Hypoglycemia Protocol Hydralazine HCl 10 mg 02/17/21 08:14 Hydralazine Hcl 20 Mg/Ml Vial IV PUSH Q8H PRN Blood Pressure - High Dextrose 1,000 mls @ 100 mls/hr 02/17/21 07:56 Dextrose 5% 1,000 Ml IVPB PRN PRN Hypoglycemia Protocol Piperacillin/Tazobactam/Dextrose 3.375 gm in 50 mls @ 100 mls/hr 02/20/21 12:00 Zosyn 3.375 Gm/D5w 50ml Pm IVPB Q6HR [facility] Insulin Aspart 2 - 5 units 02/17/21 08:00 02/20/21 08:53 Insulin Aspart (*Bkc) 100 Units/Ml SUB-Q Not Given TIDWM [facility] Protocol Morphine Sulfate 2 mg 02/18/21 10:01 Morphine Sulfate (*Crx) 2 Mg/Ml Inj IV PUSH Q2H PRN Pain Rated 4-6 Morphine Sulfate 4 mg 02/18/21 10:01 02/19/21 00:37 Morphine Sulfate (*Crx) 4 Mg/Ml Inj IV PUSH 4 mg Q2H PRN Administration Pain Rated 7-10 Nicotine 1 patch 02/17/21 08:59 02/20/21 09:26 Nicotine (*Pbkc) 7 Mg Patch TRANSDERM 1 patch QAM PRN Administration smoking cravings Pantoprazole Sodium 40 mg 02/17/21 09:00 02/20/21 09:21 Pantoprazole Sodium Iv 40 Mg Vial IV PUSH 40 mg QAM TATE Administration Polyethylene Glycol 17 gm 02/20/21 09:00 02/20/21 09:17 Polyethylene Glycol 3350 17 Gm Powd.Pack P
[2021-02-20 12:13] LABS: Glucose Point of Care 242 mg/dl (65-105)
--- NOTE | 2021-02-20 12:35 | PM.DS ---
DS: Admitting Diagnosis Admitting Diagnosis Admitting Diagnosis: Acute cholecystitis DS: Discharge Diagnosis Discharge Diagnosis (1) Acute cholecystitis: Code(s): K81.0 - Acute cholecystitis Status: Acute Assessment and Plan: CT and pt symptoms consistent with cholecystitis -patient underwent a cholecystectomy 02/18/21 which went well. -leukocytosis resolved with 3 days of abx and surgery, sx recommended no further abx outpt -she will follow up with Dr. Huber in 2 weeks (2) Pericardial effusion: Code(s): I31.3 - Pericardial effusion (noninflammatory) Status: Acute Assessment and Plan: Pt reports no hx of heart disease -small, no signs of cardiac tamponade -CT showing pericardial effusion but none seen on the echo. (3) T2DM (type 2 diabetes mellitus): Qualifiers: Diabetes mellitus complication status: with hyperglycemia Diabetes mellitus jail insulin use: without adjunct faculty for medical terminology use Qualified Code(s): E11.65 - Type 2 diabetes mellitus with hyperglycemia Code(s): E11.9 - Type 2 diabetes mellitus without complications Status: Acute Assessment and Plan: Last glucose 242 -Continue home glimepiride -A1c 8.0 -follow up with pcp (4) Hypertension: Code(s): I10 - Essential (primary) hypertension Status: Inactive Assessment and Plan: Last bp 149/75 -continue home amlodipine (5) Anemia: Code(s): D64.9 - Anemia, unspecified Status: Acute Assessment and Plan: mild, no signs of bleeding -anemia labs show anemia of chronic disease, likely due to diabetes (6) Acute hypokalemia: Code(s): E87.6 - Hypokalemia Status: Acute Assessment and Plan: 3.1 today, 40meq given prior to discharge -suspect will improve on its own now that she is tolerating a regular diet (7) Hypertrophic nonobstructive cardiomyopathy: Code(s): I42.2 - Other hypertrophic cardiomyopathy Status: Acute Assessment and Plan: Noted on echo, no signs of obstruction -will need to follow-up with her mechanical inspector back in [facility]. Echo report was printed out and given to the patient -Avoid dehydration and diuretics DS: Summary Hospital Course Hospital Course: Patient is a 70-year-old female who presented emergency room for nausea, vomiting and abdominal pain found to have acute cholecystitis. In the ER her initial white blood cell count was 27.2, she had CARTER with a creatinine of 1.5, hypokalemia with a potassium 2.8, and hyperglycemia 225. CT of the abdomen pelvis showed cholelithiasis with possible gallbladder wall thickening suspicious for acute cholecystitis and a small pericardial effusion. Her chest x-ray showed no acute pulmonary disease. Patient was admitted to the hospitalist service and underwent a cholecystectomy 02/18/21 without complications. She was also started on Zosyn and continued that throughout her stay. Her leukocytosis resolved with this treatment I Spoke with Dr. Pimentel about patient's discharge. He recommends no antibiotics and to continue pain medications as needed. Patient is to follow-up with their office in 2 weeks. The patient was educated about the worrisome signs and symptoms come back to emergency room for is discharged stable condition. Please see above further details Status at Discharge Functional status at discharge: independent ambulation Overall status at discharge: patient is progressing back to baseline Time Spent with Patient Time attestation: Total time spent providing and/or coordinating discharge services:38 min Time spent: Greater than 30 minutes Exam Narrative: Exam Narrative: General:Well developed well nourished patient HEENT: Normocephalic, atraumatic, PERRL, Sclerae anicteric, oral mucosa moist. Neck: Supple Resp: CTA Heart: RRR with 2/6 systolic murmur. Abd: Soft, non-distended. Incision sites clean and dry without dehiscen
[2021-02-23 09:35] LABS: Glucose Point of Care 221 mg/dl (65-105)
--- NOTE | 2021-02-26 13:10 | PC.NURSE ---
Blood cx are negative.
== END 2021-02-20 13:55 | disposition home or self-care (01) | DRG 418 ==
LOC: ANHED 22:53 → ANH3MEDSUR 02-17 00:36
PROVIDERS: Surgery; Admitting Provider Internal Medicine; Emergency Provider General Practice; Visit Provider Physician Assistant
PROC: 0FT44ZZ Resection of Gallbladder, Percutaneous Endoscopic Approach (ICD-10-PCS; CPT 47562; principal; 2021-02-18 07:30)
DX: K80.00 Calculus of gallbladder with acute cholecystitis without obstruction (principal); I31.3 Pericardial effusion (noninflammatory); I42.2 Other hypertrophic cardiomyopathy; N17.9 Acute kidney failure, unspecified; E87.6 Hypokalemia; E11.65 Type 2 diabetes mellitus with hyperglycemia; D63.8 Anemia in other chronic diseases classified elsewhere; I10 Essential (primary) hypertension; F17.210 Nicotine dependence, cigarettes, uncomplicated; Z79.899 Other long term (current) drug therapy
CPT/HCPCS: 36415; 51701; 71045; 74176; 80048; 80053; 80076; 81001; 82607; 82728; 82746; 82948; 83036; 83540; 83550; 83605; 83690; 83735; 83880; 84132; 84443; 84466; 85014; 85018; 85025; 85610; 85730; 86850; 86900; 86901; 87040; 88304; 93005; 93306; 96365; 96375; 99285; A9270; C9113; J0131; J1170; J1650; J1815; J2250; J2270; J2405; J2543; J3010; J3475; J3480; J7120